=== PATIENT | female | born 1960 | race Native Hawaiian/Other Pacific Islander ===

== ENCOUNTER 2018-12-30 22:46 | Emergency (ER) | payer OTHER ==
[~2018-12-30] VITALS: Ht 157.5 cm; Wt 65.3 kg
[2018-12-30 23:00] VITALS: BP 151/77
--- NOTE | 2018-12-30 23:19 | NUR ---
Patient discharged to home in stable condition. RX and Written and verbal after care instructions given. Patient verbalizes understanding of instruction.
== END 2018-12-30 23:20 | disposition home or self-care (01) ==
LOC: ER 22:50
DX: S29.9XXA Unspecified injury of thorax, initial encounter (principal); I10 Essential (primary) hypertension; E11.9 Type 2 diabetes mellitus without complications; X58.XXXA Exposure to other specified factors, initial encounter; Y93.89 Activity, other specified; Y92.89 Other specified places as the place of occurrence of the external cause; Y99.8 Other external cause status

== ENCOUNTER 2018-12-31 04:20 | Emergency (ER) | payer OTHER ==
[~2018-12-31] VITALS: Ht 157.5 cm; Wt 62.1 kg
[2018-12-31 04:27] VITALS: BP 147/88
--- NOTE | 2018-12-31 05:30 | NUR ---
at the bed side
== END 2018-12-31 05:36 | disposition home or self-care (01) ==
LOC: ER 04:22
DX: B02.9 Zoster without complications (principal); I10 Essential (primary) hypertension; E11.9 Type 2 diabetes mellitus without complications

== ENCOUNTER 2019-03-30 00:51 | Emergency (ER) | payer OTHER ==
[~2019-03-30] VITALS: Ht 157.5 cm; Wt 64.9 kg
[2019-03-30 00:55] VITALS: BP 135/72
--- NOTE | 2019-03-30 00:55 | NUR ---
PT C/O INTERMITENT L SIDED CHEST PAIN SINCE 0800 AM, PAIN FREE AT THIS TIME. COUGH STARTED LAST NIGHT. PT AOX4. NAD NOTED. RESP EVEN AND UNLABORED. PT STATES TOOK ASPIRIN 81 MG AT 9PM. PT ON MONITOR IN BED 2. WILL CONTINUE TO MONITOR.
--- NOTE | 2019-03-30 01:15 | NUR ---
TECH AT BEDSIDE FOR EKG
--- NOTE | 2019-03-30 01:18 | NUR ---
BLOOD DRAWN AND TAKEN TO LAB
[2019-03-30] MEDS ORDERED: ASPIRIN 325 MG TABLET PO ONE (01:30)
[2019-03-30 01:36] LABS: BASOPHILS % (AUTO) 0.3 % (0.0-2.0); EOSINOPHILS % (AUTO) 1.6 % (0.0-6.0); HEMATOCRIT 40 % (33-45); HEMOGLOBIN 13.5 g/dL (11.5-14.8); LYMPHOCYTES # (AUTO) 2.8 /CMM (0.8-4.8); LYMPHOCYTES % (AUTO) 41.1 % (20.0-44.0); MEAN CORPUSCULAR HGB CONC 34 g/dl (31.0-36.0); MEAN CORPUSCULAR VOLUME 93 fL (82-100); MONOCYTES # (AUTO) 0.6 /CMM (0.1-1.30); MONOCYTES % (AUTO) 9.4 % (2.0-12.0); NEUTROPHILS # (AUTO) 3.2 /CMM (1.8-8.9); NEUTROPHILS % (AUTO) 47.6 % (43.0-81.0); PLATELET COUNT (AUTO) 218 /CMM (150-450); RED BLOOD CELL COUNT(AUTO) 4.33 MIL/uL (4.0-5.2); WHITE BLOOD COUNT (AUTO) 6.7 K/uL (4.3-11.0)
[2019-03-30] MEDS ORDERED: ASPIRIN 81 MG TAB.CHEW PO ONE (02:00)
[2019-03-30] MEDS ORDERED: ASPIRIN 81 MG TAB.CHEW ONE (02:07)
[2019-03-30 02:12] LABS: CALCIUM, SERUM 8.9 mg/dL (8.5-10.1); CARBON DIOXIDE 29 mmol/L (21-32); CHLORIDE 103 mmol/L (98-107); CREATININE 0.7 mg/dL (0.6-1.3); GLUCOSE 132 mg/dL (74-106); POTASSIUM 3.9 mmol/L (3.5-5.1); SODIUM SERUM 142 mmol/L (136-145); UREA NITROGEN, BLOOD 26 mg/dL (7-18)
--- NOTE | 2019-03-30 02:50 | NUR ---
Patient does not wish to proceed with medical care recommended by Dr. PETERSON. Patient given information related to possible complications, up to and including , which could occur as a result of leaving the hospital at this time. Patient verbalizes understanding of risks involved due to leaving against medical advice. Patient has signed AMA form. IV removed. Catheter intact and site benign. Pressure and 4x4 applied to site. No bleeding noted.
== END 2019-03-30 02:52 | disposition left against medical advice (07) ==
LOC: ER 00:53
DX: R07.89 Other chest pain (principal); I10 Essential (primary) hypertension; E11.9 Type 2 diabetes mellitus without complications
CPT/HCPCS: 36415; 71045-TC; 80048-TC; 84484-TC; 85025-TC